=== PATIENT | female | born 1965 | race Caucasian/White ===

== ENCOUNTER 2019-03-07 08:41 | Outpatient (RCR) | payer OTHER, SELFPAY ==
--- NOTE | 2019-03-07 13:06 | ONC FU_ITS ---
Dr. Rangel follow up note Patient: Rocio Kirk Unit #: [id number]: 1965 Dicatated By: Amy Rangel M.D.Date of Visit:Mar 07, 2019 Onc Med Follow-up/Prog Note History of Present Illness: Mrs. Roico Kirk, is a 53-year-old female who on 12/13/2018 underwent mammogram for palpable small mass in her left breast which showed at 1:00 position, 4 cm from nipple there is a hypoechoic mass with slightly irregular margins size was 1 x 0.9 x 0.6 cm. Benign-appearing axillary lymph nodes also noted. Patient was referred to Dr. Parada for evaluation and on 01/10/2019 she underwent excisional biopsy of left breast mass and final pathology report came back well-differentiated invasive ductal carcinoma, grade 2, tumor size 0.8 cm. Tumor approaches to within less than 1 mm of inked margin. ER 71% positive, NV 55% positive, HER-2/emiliana negative. No axillary lymph node evaluation was done as preclinically malignancy was not suspected strongly. Patient tolerated procedure well with good healing. Oncotype DX score came back low e.g. 14 and means no role of adjuvant chemotherapy but with tamoxifen alone risk of distant recurrence at 9 years about 4%.As patient still having menstrual periods. Patient was started on tamoxifen 20 mg by mouth daily on 02/03/2019 And was referred to radiation oncology for postlumpectomy radiation therapy Patient started having menstrual period at age 13, first was at age 23. Patient is on control pills for the last 30 years. Next Still having menstrual periods regular. No family history of breast cancer. Patient is a former smoker used to smoke one pack a day for 20+ years Drink occasionally. Came for follow-up, denies any specific complaints, no nausea or vomiting, no fever or chills but occasionally hot flashes otherwise tolerated tamoxifen well. Patient said she did some reading about tamoxifen related side effects including endometrial carcinoma, DVT and has decided to stop tamoxifen. And also discussed with Dr. Dong regarding radiation therapy and later side effect especially cardiac, and now not considering postlumpectomy radiation therapy even. Medications: Glucosamine Sulfate 1 Capsule (of 1000 mg) Capsule Oral daily, Vitamin E 1 Tablet Oral daily Allergies: No Known Allergies. Review of Systems: Constitutional - Appetite is good and weight is stable. No fever, chills, hot flashes, or night sweats. Energy level is good, ENMT - No sinus congestion/drainage. No mouth sores. No sore throat or difficulty swallowing, Hematologic/Lymphatic - No abnormal bruising or bleeding, Respiratory - No shortness of breath. No cough. No pleuritic pain or hemoptysis, Cardiovascular - No angina pain. No palpitations, Gastrointestinal - No nausea or vomiting. No heartburn or acid reflux. No diarrhea or constipation. No blood in the stool or black stools, Genitourinary (F) - No dysuria or hematuria. No urinary frequency. No urgency or incontinence, Musculoskeletal - No joint or bone pain, Neurologic - No headache or dizziness. No numbness/paresthesias or other focal neurologic symptoms, Psychiatric - No anxiety or depression. No insomnia. Vital Signs: Performed on Mar 07, 2019 08:52 Height - 53.50 in Weight - 122.4 lbs (HIGH) BSA - 1.39 sq.m BMI - 30.07 (HIGH) Temperature - 98.3 F (LOW) Pulse - 76 /min Respiration - 18 /min BP - 115/72 mm(hg) O2 Sat - 99 % Pain - 0 Performance Status: 0 - Fully active, able to carry on all predisease activities without restrictions. (ECOG) Physical Examination: Respiratory - Lungs are clear to auscultation without rhonchi or wheezing, Cardiovascular - Regular rate and rhythm of heart without murmurs, gallops or rubs, Extremities - No visible deformities, no cyanosis, clubbing or edema. Pulses 4+ and equal bilaterally. Lab/Imaging: Most recent lab results are not available for this patient. Impression: Well differentiated invasive ductal carcinoma, grade 2, involving left breast status post excisional biopsy done on 01/10/2019 Final pathology showed 0.8 cm invasive with close but clear margins. No lymphovascular involvement Underwent sentinel lymph node dissection on 02/13/2019 and 0 out of 2 lymph nodes showed metastatic disease pN0 ER 71%, NV 55%, HER-2/emiliana negative Oncotype DX score was 14 e.g. low, started on tamoxifen 20 mg by mouth daily for 5 years on 02/03/2019 Plan: Discussed with patient regarding her Oncotype DX score which came back low e.g. 14, means to role of adjuvant chemotherapy but with hormonal therapy risk of distant recurrence at 9 years is about 4%. Patient was started on tamoxifen on 02/03/2019, patient did take it for a few days and tolerated well but then decided to stop it because of related side effects and also she was referred to radiation oncology for postlumpectomy radiation therapy but after discussing with Dr. Dong, patient said she will not consider radiation therapy due to related toxicity especially cardiac toxicity. Patient was reassured regarding tamoxifen therapy, including benefits and related side effects and close monitoring but patient is reluctant and now after discussion regarding Oncotype DX score, patient said she will think about this and might consider restarting tamoxifen. In that case we'll see her back in 3 months with CBC CMP on the other hand if patient decided not to consider tamoxifen then we will see her back in a month to discuss other options. She was also encouraged to consider postlumpectomy radiation therapy if not mastectomy with breast reconstruction. Patient said she will think about. Signed By: Amy Rangel M.D. <<Signature on File>>
== END 2019-03-28 23:59 | disposition home or self-care (01) ==
LOC: ONCMED 08:41
PROVIDERS: Family Provider Family Medicine; PCP Family Medicine; Visit Provider Internal Medicine Hematology & Oncology
DX: C50.412 Malignant neoplasm of upper-outer quadrant of left female breast (principal); Z17.0 Estrogen receptor positive status [ER+]; Z79.810 Long term (current) use of selective estrogen receptor modulators (SERMs); Z87.891 Personal history of nicotine dependence
CPT/HCPCS: 99214

== ENCOUNTER 2019-10-06 10:39 | Outpatient (CLI) | payer OTHER, SELFPAY ==
--- NOTE | 2019-10-06 10:48 | MM_ITS ---
WS: [id number] LEFT DIGITAL MAMMOGRAPHY WITH CAD CLINICAL INFORMATION: HX OF BREAST CA COMPARISON: TECHNIQUE: 4 views of the left breast were obtained. FINDINGS: The left breast is composed of heterogeneous fibroglandular density tissue, which can limit the detec tion of small underlying mass lesions. Lucent centered calcification left breast. Lumpectomy upper ou ter quadrant left breast. Previously described 8 mm nodular density along the axillary tail no longer visualized. No suspicious focal mass, asymmetry, calcifications, or architectural distortion. No evidence of ryan gnancy. MM/[id number] IMPRESSION: BI-RADS: 2-Benign FOLLOW UP: 1 Year Follow-up Recommend return to annual diagnostic mammography.
== END 2019-10-06 10:40 | disposition home or self-care (01) ==
LOC: RADSHAW 10:41
PROVIDERS: PCP Family Medicine; Visit Provider Family Medicine
DX: Z85.3 Personal history of malignant neoplasm of breast (principal)
CPT/HCPCS: 77065

== ENCOUNTER 2020-01-27 07:48 | Outpatient (CLI) | payer OTHER, SELFPAY ==
--- NOTE | 2020-01-27 07:53 | NM_ITS ---
WS: [id number] NUCLEAR MEDICINE BONE SCAN Radiopharmaceutical: 26.3 Tc-99m MDP mCi IV Injection site: Right antecubital Postinjection imaging delay: 1 hr CLINICAL INFORMATION: BREAST CANCER COMPARISON: None. FINDINGS: Bone lesions: There are no osseous lesions suspicious for metastatic disease. Soft tissue contours: Normal. Kidneys: Normal. Other findings: None. NM/NM bone scan whole body* [id number] IMPRESSION: No evidence of osseous metastatic disease.
== END 2020-01-27 07:49 | disposition home or self-care (01) ==
LOC: NM 07:49
PROVIDERS: PCP Family Medicine; Visit Provider Family Medicine
DX: C50.919 Malignant neoplasm of unspecified site of unspecified female breast (principal)
CPT/HCPCS: 78306; A9561

== ENCOUNTER 2020-02-02 07:50 | Outpatient (CLI) | payer OTHER, SELFPAY ==
--- NOTE | 2020-02-02 08:06 | MM_ITS ---
WS: [id number] RIGHT DIGITAL MAMMOGRAPHY WITH CAD CLINICAL INFORMATION: HX OF BREAST CA COMPARISON: TECHNIQUE: 3 views of the right breast were obtained. FINDINGS: The right breast is composed of heterogeneous fibroglandular density tissue, which can limit the dete ction of small underlying mass lesions. No suspicious focal mass, asymmetry, calcifications, or architectural distortion. No evidence of ryan gnancy. MM/[place] [id number] IMPRESSION: BI-RADS: 1-Negative FOLLOW UP: 1 Year Follow-up Recommend return to annual diagnostic mammography.
== END 2020-02-02 07:51 | disposition home or self-care (01) ==
LOC: RADSHAW 07:52
PROVIDERS: PCP Family Medicine; Visit Provider Family Medicine
DX: Z85.3 Personal history of malignant neoplasm of breast (principal)
CPT/HCPCS: 77065

== ENCOUNTER 2021-01-04 08:21 | Outpatient (CLI) | payer OTHER, SELFPAY ==
--- NOTE | 2021-01-04 08:26 | MM_ITS ---
WS: [id number] BILATERAL DIGITAL DIAGNOSTIC MAMMOGRAM MAMMOGRAPHY WITH CAD CLINICAL INFORMATION: HX OF BREAST CA COMPARISON: February 02, 2020 TECHNIQUE: Bilateral CC, MLO, and ML views. FINDINGS: Scattered fibroglandular densities bilaterally. Lucent centered calcification left breast. Prior lump ectomy changes left breast. No suspicious focal mass, asymmetry, calcifications, or architectural distortion. No evidence of ryan gnancy. MM/[place] [id number] IMPRESSION: BI-RADS: 2-Benign FOLLOW UP: 1 Year Follow-up Recommend return to annual diagnostic mammography.
== END 2021-01-04 08:22 | disposition home or self-care (01) ==
LOC: RADSHAW 08:23
PROVIDERS: PCP Family Medicine; Visit Provider Family Medicine
DX: Z85.3 Personal history of malignant neoplasm of breast (principal)
CPT/HCPCS: 77066

== ENCOUNTER → 2021-11-24 09:30 | Outpatient (BNVA) | payer BC, SELFPAY | PROVIDERS: PCP Family Medicine; Visit Provider Family Medicine | DX: Z00.00 Encounter for general adult medical examination without abnormal findings (principal); Z85.3 Personal history of malignant neoplasm of breast | CPT/HCPCS: 80053; 80061; 83540; 84443; 85025; 86140 ==

== ENCOUNTER 2021-12-06 14:10 | Outpatient (CLI) | payer BC, SELFPAY ==
--- NOTE | 2021-12-06 14:18 | MM_ITS ---
WS: [id number] BILATERAL 3D TOMOSYNTHESIS DIGITAL DIAGNOSTIC MAMMOGRAPHY WITH CAD CLINICAL INFORMATION: hx of breast cancer COMPARISON: January 04, 2021 TECHNIQUE: Bilateral CC, MLO, and ML views. FINDINGS: The breasts are composed of heterogeneous fibroglandular density, which can limit the detection of sm all underlying mass lesions. Lucent centered calcification LEFT breast. No suspicious focal mass, asymmetry, calcifications, or architectural distortion. No evidence of ryan gnancy. MM/[place] [id number] IMPRESSION: BI-RADS: 2-Benign FOLLOW UP: 1 Year Follow-up Recommend return to annual diagnostic mammography.
== END 2021-12-06 14:11 | disposition home or self-care (01) ==
LOC: RAD 14:11
PROVIDERS: PCP Family Medicine; Visit Provider Family Medicine
DX: Z85.3 Personal history of malignant neoplasm of breast (principal)
CPT/HCPCS: 77066

== ENCOUNTER 2022-12-19 14:50 | Outpatient (CLI) | payer BC, SELFPAY ==
--- NOTE | 2022-12-19 14:58 | MM_ITS ---
WS: [id number] DIAGNOSTIC BILATERAL DIGITAL BREAST TOMOSYNTHESIS MAMMOGRAPHY WITH CAD HISTORY: ANNUAL - HX BR CA, LEFT breast cancer. COMPARISON: 12/06/2021, 01/04/2021 and 12/10/2018 TECHNIQUE: Bilateral craniocaudad, mediolateral oblique, and mediolateral views are submitted with to mosynthesis and SM. Computer aided detection utilized. Breast composition: The breasts are heterogeneously dense, which may obscure small masses. Slightly l obulated mass in the medial RIGHT breast at 3:00 at a middle depth measures 8 x 9 mm. Mass is new sin ce the prior study. There is a benign calcification posterior to the LEFT nipple. No additional abnor malities. Postsurgical changes are noted in the upper outer quadrant of the LEFT breast towards the a xillary tail. IMPRESSION: MM/[place] [id number] BI-RADS: 0-Incomplete: Need additional imaging evaluation FOLLOW UP: Need Additional Imaging RIGHT breast: Spot compression views (CC and MLO). Ultrasound to follow if abno rmality persists.
== END 2022-12-19 14:51 | disposition home or self-care (01) ==
PROVIDERS: PCP Family Medicine; Visit Provider Family Medicine
DX: Z85.3 Personal history of malignant neoplasm of breast (principal)
CPT/HCPCS: 77062; G0279

== ENCOUNTER 2022-12-27 12:44 | Outpatient (CLI) | payer BC, SELFPAY ==
--- NOTE | 2022-12-27 13:12 | MM_ITS ---
WS: [id number] ADDITIONAL VIEWS RIGHT MAMMOGRAM WITH DIGITAL BREAST TOMOSYNTHESIS. RIGHT BREAST ULTRASOUND HISTORY: ABNORMAL MAMMO COMPARISON: 12/19/2022, 12/06/2021 RIGHT MAMMOGRAM: Spot compression views and true ML with digital breast tomosynthesis and SM. Additional views are obtained. There is a persistent 7 mm mass in the anterior RIGHT breast near 3:00 . No calcifications or distortion. RIGHT BREAST ULTRASOUND 2-D and color Doppler imaging submitted. Simple cyst RIGHT breast at 3:00, 2 cm from the nipple. Corresponds to the mammographic abnormality. IMPRESSION: MM/[place] [id number] BI-RADS: 2-Benign FOLLOW UP: 1 Year Follow-up
== END 2022-12-27 12:45 | disposition home or self-care (01) ==
LOC: RAD 12:45
PROVIDERS: PCP Family Medicine; Visit Provider Family Medicine
DX: N63.15 Unspecified lump in the right breast, overlapping quadrants (principal)
CPT/HCPCS: 76642; 77061; G0279

== ENCOUNTER 2023-10-18 08:29 | Outpatient (CLI) | payer BC, SELFPAY ==
--- NOTE | 2023-10-18 08:32 | CT_ITS ---
WS: [id number] LDCT LUNG CANCER SCREENING HISTORY: HX OF TOBACCO USE TECHNIQUE: Axial imaging performed from the apices to 1 cm below the costophrenic angles. Coronal and sagittal reformats are submitted with axial MIP series. All CT scans at [facility] use at least one of these dose optimization techniques: automated exposure control; mA and/or kV adjustment per patient size (includes targeted exams where dose is matched to clinical indication); or iterativ e reconstruction. DLP: 39.32 mGy.cm DIvol: Mean CTDIvol: 0.60 (mGy) COMPARISON: None available. Diagnostic quality: Satisfactory Lungs: Hyperinflated lungs. Tiny micronodule LEFT lower lobe, image 160 of series 4. No mass. No endo bronchial lesions. Heart: Normal size heart with no pericardial effusion.. Other findings: Mediastinum hilar regions poorly visualized. Mild atherosclerotic plaque aorta. No ad renal mass. CT/CT lung screening [id number] IMPRESSION: LUNG-RADS: 2-Benign Appearance or Behavior FOLLOW UP: 12 Month: Continue annual screening with LDCT OTHER FINDINGS (S MODIFIER): None.
== END 2023-10-18 08:30 | disposition home or self-care (01) ==
LOC: RAD 08:29
PROVIDERS: PCP Family Medicine; Visit Provider Family Medicine
DX: Z87.891 Personal history of nicotine dependence (principal); I70.0 Atherosclerosis of aorta
CPT/HCPCS: 71271

== ENCOUNTER 2023-10-24 09:14 | Outpatient (CLI) | payer BC, SELFPAY ==
--- NOTE | 2023-10-24 09:21 | MM_ITS ---
WS: [id number] DIAGNOSTIC BILATERAL DIGITAL BREAST TOMOSYNTHESIS MAMMOGRAPHY WITH CAD HISTORY: HX OF BREAST CANCER COMPARISON: 12/27/2022, 12/19/2022, 01/04/2021 TECHNIQUE: Bilateral craniocaudad, mediolateral oblique, and mediolateral views are submitted with to mosynthesis and SM. Computer aided detection utilized. Breast composition: There are scattered areas of fibroglandular density. Benign calcification anterior LEFT breast. No suspicious masses. Benign calcification anterior LEFT b reast. No architectural distortion. MM/[place] [id number] IMPRESSION: BI-RADS: 2-Benign FOLLOW UP: 1 Year Follow-up
== END 2023-10-24 09:15 | disposition home or self-care (01) ==
LOC: RAD 09:18
PROVIDERS: PCP Family Medicine; Visit Provider Family Medicine
DX: Z85.3 Personal history of malignant neoplasm of breast (principal); R92.323 Mammographic fibroglandular density, bilateral breasts; R92.1 Mammographic calcification found on diagnostic imaging of breast
CPT/HCPCS: 77062; G0279

== ENCOUNTER 2024-10-23 07:47 | Outpatient (CLI) | payer BC, SELFPAY ==
--- NOTE | 2024-10-23 07:55 | MM_ITS ---
WS: [id number] BILATERAL 3D TOMOSYNTHESIS DIGITAL DIAGNOSTIC MAMMOGRAPHY WITH CAD CLINICAL INFORMATION: HX OF BREAST CANCER HISTORY: LEFT breast cancer COMPARISON: 2023 TECHNIQUE: Bilateral CC, MLO, and ML views. FINDINGS: The breasts are composed of heterogeneous fibroglandular density, which can limit the detection of small underlying mass lesions. Lucent centered calcifications LEFT breast. Stable LEFT breast nodular densities. New nodular asymmetric density measuring 7 mm central RIGHT breast along the posterior nipple line. Recommend further evaluation with RIGHT breast diagnostic mammography and ultrasound. This is best visualized on the MLO view. MM/MM diag tomosynthesis [id number] IMPRESSION: DENSITY: The breasts are heterogeneously dense, which may obscure small masses. BI-RADS: 0 - Incomplete: Need additional imaging evaluation FOLLOW UP: Need Additional Imaging Recommend RIGHT breast diagnostic mammography and ultrasound.
== END 2024-10-23 07:48 | disposition home or self-care (01) ==
LOC: RAD 07:51
PROVIDERS: PCP Family Medicine; Visit Provider Family Medicine
DX: Z08 Encounter for follow-up examination after completed treatment for malignant neoplasm (principal); Z85.3 Personal history of malignant neoplasm of breast; N63.41 Unspecified lump in right breast, subareolar; R92.333 Mammographic heterogeneous density, bilateral breasts
CPT/HCPCS: 77062; G0279

== ENCOUNTER 2024-11-03 07:28 | Outpatient (CLI) | payer BC, SELFPAY ==
--- NOTE | 2024-11-03 07:34 | CT_ITS ---
WS: [id number] LDCT LUNG CANCER SCREENING TECHNIQUE: Noncontrast CT of the chest with coronal and sagittal reformatted images. CLINICAL INFORMATION: HX OF TOBACCO USE COMPARISON: 2023 DLP: 40.31 mGy.cm DIvol: Mean CTDIvol: 0.60 (mGy) All CT scans at [facility] use at least one of these dose optimization techniques: automated exposure control; mA and/or kV adjustment per patient size (includes targeted exams where dose is matched to clinical indication); or iterative reconstruction. FINDINGS: Hyperinflation. Stable 4 mm nodule LEFT lower lobe laterally. Tiny 3 mm nodule RIGHT middle lobe along the fissure. A few tiny micronodules in the RIGHT middle lobe laterally unchanged. 3 mm nodule RIGHT upper lobe anteriorly. A few micronodules in the RIGHT lower lobe laterally unchanged. No mediastinal or hilar lymphadenopathy. Aortic calcification. Moderate thoracic kyphosis. CT/CT lung screening [id number] IMPRESSION: LUNG-RADS: 2-Benign Appearance or Behavior FOLLOW UP: 12 Month: Continue annual screening with LDCT
== END 2024-11-03 07:29 | disposition home or self-care (01) ==
LOC: RAD 07:28
PROVIDERS: PCP Family Medicine; Visit Provider Family Medicine
DX: Z87.891 Personal history of nicotine dependence (principal); R91.8 Other nonspecific abnormal finding of lung field; I70.0 Atherosclerosis of aorta
CPT/HCPCS: 71271

== ENCOUNTER 2024-11-06 08:12 | Outpatient (CLI) | payer BC, SELFPAY ==
--- NOTE | 2024-11-06 08:21 | MM_ITS ---
WS: [id number] RIGHT 3D TOMOSYNTHESIS DIGITAL MAMMOGRAPHY WITH CAD CLINICAL INFORMATION: ABNORMAL MAMMOGRAM HISTORY: Additional COMPARISON: 10/23/2024 TECHNIQUE: 3 views of the right breast were obtained. FINDINGS: The right breast is composed of heterogeneous fibroglandular density tissue, which can limit the detection of small underlying mass lesions. Again seen is the nodular asymmetric density 7 mm central RIGHT breast along the posterior nipple line. This is persistent on the spot compression views ultrasound is pending. ULTRASOUND BREAST RIGHT TECHNIQUE: Ultrasound right breast focused area of concern. CLINICAL INFORMATION: ABNORMAL MAMMOGRAM FINDINGS: Retroareolar RIGHT breast cyst measuring 7 x 3 x 9 mm. Tiny amount of internal debris. This has a benign appearance. No other suspicious findings in the area of concern. Recommend return to annual screening mammography. MM/MM diag RT tomosynthesis [id number] IMPRESSION: DENSITY: The breasts are heterogeneously dense, which may obscure small masses. BI-RADS: 2 - Benign FOLLOW UP: 1 Year Follow-up Recommend return to annual screening mammography.
== END 2024-11-06 08:13 | disposition home or self-care (01) ==
LOC: RAD 08:15
PROVIDERS: PCP Family Medicine; Visit Provider Family Medicine
DX: R92.8 Other abnormal and inconclusive findings on diagnostic imaging of breast (principal); R92.331 Mammographic heterogeneous density, right breast
CPT/HCPCS: 76642; 77061; G0279